=== PATIENT | female | born 1955 | race Caucasian/White ===

== ENCOUNTER 2018-08-16 23:25 | Emergency (ER) | payer BC, OTHER ==
[2018-08-17] MEDS ORDERED: KETOROLAC TROMETHAMINE INJ/PF 30 MG/1 ML SDV IV ONE (00:24)
[2018-08-17] MEDS ORDERED: OXYCODONE-ACETAMINOPHEN 5-325 MG TABLET PO ONE (00:25)
[2018-08-17] MEDS ORDERED: NORMAL SALINE 1000 ML 1,000 ML IV ONE (00:25)
[2018-08-17] MEDS ORDERED: METOCLOPRAMIDE HCL INJ/PF 10 MG/2 ML SDV IV ONE (00:25)
--- NOTE | 2018-08-17 00:29 | ER Document Report ---
ED Medical Screen (RME) - General Chief Complaint: Flank Pain Stated Complaint: RIGHT FLANK AND GROIN PAIN Time Seen by Provider: 08/17/18 00:24 Primary Care Provider: MERISSA AGUAYO MD [Primary Care Provider] - Follow up as needed Notes: 63-year-old female coming in today with sudden onset right flank pain with severe nausea and almost such bad pain that she blacked out. Is been having some urinary issues for the past couple of days. No fevers or shaking chills. One Episode of Emesis. Feels Similar to previous kidney stone. I have treated and performed a rapid initial assessment of this patient. A comprehensive ED assessment and evaluation of the patient, analysis of test results and completion of medical decision making process will be conducted by additional ED providers. PHYSICAL EXAMINATION: GENERAL: Well-appearing, well-nourished and in no acute distress. A&Ox4. Answers questions appropriately. LUNGS: Breath sounds clear to auscultation bilaterally and equal. No wheezes rales or rhonchi. HEART: Regular rate and rhythm without murmurs, rubs, gallops. ABDOMEN: Soft, nondistended abdomen. No guarding, no rebound. Extremities: No cyanosis, clubbing, or edema b/l. NEUROLOGICAL: Normal speech, normal gait. PSYCH: Normal mood, normal affect. TRAVEL OUTSIDE OF THE [place] IN LAST 30 DAYS: No - Related Data Allergies/Adverse Reactions: Iodinated Contrast- Oral and IV Dye Allergy (Verified 08/16/18 23:43) Penicillins Allergy (Verified 08/16/18 23:43) Sulfa (Sulfonamide Antibiotics) Allergy (Verified 08/16/18 23:43) Physical Exam - Vital signs Vitals: Temp Pulse Resp BP Pulse Ox 97.3 F 66 16 131/66 H 98 08/16/18 23:40 08/16/18 23:40 08/16/18 23:40 08/16/18 23:40 08/16/18 23:40 Course - Vital Signs Vital signs: Temp Pulse Resp BP Pulse Ox 97.3 F 66 16 131/66 H 98 08/16/18 23:40 08/16/18 23:40 08/16/18 23:40 08/16/18 23:40 08/16/18 23:40 - Laboratory Result Diagrams: 08/16/18 23:59 08/16/18 23:59 Doctor's Discharge - Discharge Referrals: MERISSA AGUAYO MD [Primary Care Provider] - Follow up as needed
[2018-08-17 00:37] LABS: ABSOLUTE LYMPHOCYTES (AUTO) 0.8 10^3/uL (0.5-4.7); ABSOLUTE MONOCYTES (AUTO) 0.4 10^3/uL (0.1-1.4); ABSOLUTE NEUT (AUTO) 7.5 10^3/uL (1.7-8.2); BASOPHILS % (AUTO) 0.1 % (0-2); EOSINOPHILS % (AUTO) 0.1 % (0-6); HEMATOCRIT 42.1 % (36.0-47.0); HEMOGLOBIN 14.5 g/dL (12.0-15.5); INTERNATIONAL RATION (INR) 1.04; LYMPHOCYTES % (AUTO) 9.4 % (13-45); MEAN CORPUSCULAR HEMOGLOBIN 31.9 pg (27.0-33.4); MEAN CORPUSCULAR HGB CONC 34.4 g/dL (32.0-36.0); MEAN CORPUSCULAR VOLUME 93 fl (80-97); MONOCYTES % (AUTO) 4.9 % (3-13); PLATELET COUNT 192 10^3/uL (150-450); PROTHROMBIN TIME 14.1 SEC (11.4-15.4); RED BLOOD COUNT 4.54 10^6/uL (3.72-5.28); RED CELL DISTRIBUTION WIDTH 13.3 % (11.5-14.0); SEGMENTED NEUTROPHILS % (AUTO) 85.5 % (42-78); TOTAL CELLS COUNTED % (AUTO) 100 %; WHITE BLOOD COUNT 8.8 10^3/uL (4.0-10.5)
[2018-08-17 00:48] LABS: APPEARANCE,URINE SLIGHTLY-CLOUDY; BILIRUBIN,URINE NEGATIVE (NEGATIVE); COLOR,URINE YELLOW; GLUCOSE, URINE NEGATIVE (NEGATIVE); KETONES,URINE 80 mg/dL (NEGATIVE); LEUKOCYTE ESTERASE,URINE TRACE (NEGATIVE); NITRITE,URINE NEGATIVE (NEGATIVE); PROTEIN,URINE NEGATIVE (NEGATIVE); URINE SPECIFIC GRAVITY 1.021; UROBILINOGEN,URINE NEGATIVE mg/dL (<2.0)
[2018-08-17 00:53] LABS: ALANINE AMINOTRANSFERASE 74 U/L (9-52); ALBUMIN 4.4 g/dL (3.5-5.0); ALKALINE PHOSPHATASE 85 U/L (38-126); ANION GAP 12 (5-19); ASPARTATE AMINO TRANSFERASE 75 U/L (14-36); BILIRUBIN,DIRECT 0.4 mg/dL (0.0-0.4); BILIRUBIN,TOTAL 0.8 mg/dL (0.2-1.3); BLOOD UREA NITROGEN 19 mg/dL (7-20); CALCIUM 10.3 mg/dL (8.4-10.2); CARBON DIOXIDE 26 mmol/L (22-30); CHLORIDE 102 mmol/L (98-107); GLUCOSE 115 mg/dL (75-110); POTASSIUM 4.4 mmol/L (3.6-5.0); TOTAL PROTEIN 7.7 g/dL (6.3-8.2)
--- NOTE | 2018-08-17 02:22 | ER Document Report ---
ED General - General Chief Complaint: Flank Pain Stated Complaint: RIGHT FLANK AND GROIN PAIN Time Seen by Provider: 08/17/18 00:24 Primary Care Provider: MERISSA AGUAYO MD [Primary Care Provider] - Follow up as needed Notes: 63-year-old female coming in today with sudden onset right flank pain with severe nausea and almost such bad pain that she blacked out. Is been having some urinary issues for the past couple of days. No fevers or shaking chills. One Episode of Emesis. Feels Similar to previous kidney stone. is a urologist. States the patient has had a kidney stone back in 1992. Patient was medicated for pain in triage. She denies fever chills no hematuria or dysuria. Denies chest pain denies shortness of breath. Planes of right- sided flank pain for which she initially rated as severe. Rates it radiates down to the right lower portion of her abdomen nothing makes it better or worse. TRAVEL OUTSIDE OF THE [place] IN LAST 30 DAYS: No - Related Data Allergies/Adverse Reactions: Iodinated Contrast- Oral and IV Dye Allergy (Verified 08/16/18 23:43) Penicillins Allergy (Verified 08/16/18 23:43) Sulfa (Sulfonamide Antibiotics) Allergy (Verified 08/16/18 23:43) Past Medical History - Social History Smoking Status: Unknown if Ever Smoked Family History: Reviewed & Not Pertinent, Other Review of Systems - Review of Systems Constitutional: denies: Chills, Fever Cardiovascular: denies: Chest pain, Dyspnea Genitourinary: Flank pain. denies: Hematuria -: Yes All other systems reviewed and negative Physical Exam - Vital signs Vitals: Temp Pulse Resp BP Pulse Ox 97.3 F 66 16 131/66 H 98 08/16/18 23:40 08/16/18 23:40 08/16/18 23:40 08/16/18 23:40 08/16/18 23:40 - Notes Notes: GENERAL_APPEARANCE: well_nourished, alert, cooperative, no_acute_distress, no_obvious_discomfort. VITALS: reviewed, see vital signs table. HEAD: no_swelling\tenderness on the head. EYES: conjunctiva_clear. NOSE: no_nasal_discharge. MOUTH: (-)decreased moisture. NECK: supple, no_neck_tenderness, (-)thyromegaly. BACK: Right CVA tenderness CHEST_WALL: no_chest_tenderness. ABDOMEN: normal_BS, soft, no_abd_tenderness, (-)guarding, (-)rebound, no_or ganomegaly, no_abd_masses. EXTREMITIES: good pulses in all_extremities, no_swelling\tenderness in the extremities, no_edema. SKIN: warm, dry, good_color, no_rash. MENTAL_STATUS: speech_clear, oriented_X_3, normal_affect, responds_appropriately to questions. Course - Re-evaluation Re-evalutation: 08/17/18 02:22 63-year-old female with a history of kidney stones presents with right-sided flank pain that felt similar to a kidney stone. 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 Patient has had hematuria she does have blood in her urine here without signs of infection. We are awaiting CT scan r esults. Patient has been medicated for pain. 08/17/18 02:34 3 mm stone at right UVJ. The patient already has Flomax at home will prescribe pain and nausea medicine for home. Follow up with urology - Vital Signs Vital signs: Temp Pulse Resp BP Pulse Ox 97.3 F 66 16 131/66 H 98 08/16/18 23:40 08/16/18 23:40 08/16/18 23:40 08/16/18 23:40 08/16/18 23:40 - Laboratory Result Diagrams: 08/16/18 23:59 08/16/18 23:59 Laboratory results interpreted by me: 08/16/18 08/16/18 08/16/18 23:59 23:59 23:59 Seg Neutrophils % 85.5 H Lymphocytes % 9.4 L Glucose 115 H Calcium 10.3 H AST 75 H ALT 74 H Urine Ketones 80 H Urine Blood MODERATE H Ur Leukocyte Esterase TRACE H - Diagnostic Test Radiology reviewed: Reports reviewed Radiology results interpreted by me: 08/17/18 02:34 Abdomen/Pelvis CT 08/17/18 00:25 IMPRESSION: 3 mm stone within the distal right ureter causing mild to moderate hydroureter and hydronephrosis. Additional punctate stone along the lower pole of the right kidney. 4 mm left ovarian cyst. Recommend prompt follow-up with pelvic ultrasound. TECHNICAL DOCUMENTATION: Quality ID # 436: Final reports with documentation of one or more dose reduction techniques (e.g., Automated exposure control, adjustment of the mA and/or kV according to patient size, use of iterative reconstruction technique) copyright 2011 [employer]- All Rights Reserved Discharge - Discharge Clinical Impression: Kidney stone on right side Condition: Good Disposition: HOME, SELF-CARE Instructions: Kidney Stone ([facility]) Prescriptions: Ondansetron [Zofran Odt 4 mg Tablet] 1 - 2 tab PO Q4H PRN #15 tab.rapdis PRN Reason: For Nausea/Vomiting Oxycodone HCl [Oxycontin Ir 5 Mg Tablet] 1 - 2 mg PO Q4H PRN #25 tablet PRN Reason: For Pain Referrals: MERISSA AGUAYO MD [Primary Care Provider] - Follow up as needed
--- NOTE | 2018-08-17 02:30 | RADIOLOGY REPORT (SQ) ---
EXAM DESCRIPTION: CT ABDOMEN PELVIS WITHOUT IV CONTRAST COMPLETED DATE/TME: 08/17/2018 00:25 CLINICAL HISTORY: 63 years, Female, RIGHT FLANK PAIN, SEVERE NAUSEA COMPARISON: None. TECHNIQUE: Axial CT images of the abdomen and pelvis were obtained without contrast. Sagittal and coronal reformats were performed. [facility] 1029 Images stored on PACS. All CT scanners at this facility use dose modulation, iterative reconstruction, and/or weight based dosing when appropriate to reduce radiation dose to as low as reasonably achievable (ALARA). [facility]: Dose Right [facility]: CareDose [facility]: Dose Right [facility]: Teradose 4D [facility]: [employer] LIMITATIONS: None. FINDINGS: The lung bases are clear. There is a 3 cm cyst along the inferior margin of the right hepatic lobe. Cholecystectomy. The pancreas, spleen, and adrenal glands are unremarkable. There is a 3 mm stone within the distal right ureter just proximal to the UVJ causing mild to moderate hydronephrosis and hydroureter. There is an additional punctate stone along the lower pole. There is no evidence of left-sided nephrolithiasis or hydronephrosis. There is a 1.9 cm cyst along the lower pole of the left kidney. There is no intraperitoneal free air or fluid. There is no lymphadenopathy. There are mild atherosclerotic calcific effusions of the abdominal aorta without evidence of aneurysm. The stomach and small bowel are unremarkable. The appendix is normal. The right colon appears along the midline of the abdomen. The uterus is unremarkable. There is a 4.0 x 3.8 cm left adnexal cyst. The urinary bladder is unremarkable. There are no lytic or blastic bone lesions. IMPRESSION: 3 mm stone within the distal right ureter causing mild to moderate hydroureter and hydronephrosis. Additional punctate stone along the lower pole of the right kidney. 4 mm left ovarian cyst. Recommend prompt follow-up with pelvic ultrasound. TECHNICAL DOCUMENTATION: Quality ID # 436: Final reports with documentation of one or more dose reduction techniques (e.g., Automated exposure control, adjustment of the mA and/or kV according to patient size, use of iterative reconstruction technique) copyright 2010 [employer]- All Rights Reserved
[2018-08-17 02:52] VITALS: BP 100/51
== END 2018-08-17 03:01 | disposition home or self-care (01) ==
LOC: ER 23:25
DX: N20.0 Calculus of kidney (principal); R10.9 Unspecified abdominal pain; R10.30 Lower abdominal pain, unspecified; R11.0 Nausea; R39.198 Other difficulties with micturition
CPT/HCPCS: 99284; 96361; 96374; 96375; 36415; 85025; 85610; 80053; 81001; 74176; J1885; J2765; J7030